=== PATIENT | female | born 1955 | race Caucasian/White ===

== ENCOUNTER 2022-03-14 10:49 | Emergency (ER) | payer OTHER ==
--- OUTSIDE RECORDS SUMMARY | 2022-03-14 10:54 | XMS REPORT | Continuity of Care Document ---
:1955 Author Organization [facility] t Address [address] [place] [place] [address] Care Team Providers Name Role Phone Aurora_Liban Attending Clinician Unavailable Zuniga_S Attending Clinician Unavailable Celestino Geiger DO Attending Clinician Zely_F Attending Clinician Unavailable V_Landis Attending Clinician Unavailable Sadiq Nugent MD Attending Clinician SADIQ NUGENT Attending Clinician Unavailable [facility] Attending Clinician Unavailable Hawkins_M Admitting Clinician Unavailable Zuniga_S Admitting Clinician Unavailable Zuniga_F Admitting Clinician Unavailable V_Landis Admitting Clinician Unavailable [facility] Admitting Clinician Unavailable Payers Payer Name Policy Type Policy Number Effective Date Expiration Date S el[place]: [id number] 2017 [employer] 00:00:00 [employer] [id number] INS[employer]ANCE COMPANY (MEDICARE SUPPLEMENT) [place]IC[place]: [id number] 2017 [employer] 00:00:00 - [facility] Problems Condition Condition Condition Status Onset Resolution Last Treating Co mments Source Name Details Category Date Date Treatment Clinician Date Bacterial Bacterial Problem Active [facility] vaginosis Vaginosis 2-04 da 00:00: Medical 00 Group Serum TSH Serum TSH Problem Active [facility] [place] level Level 2-04 da abnormal Abnormal 00:00: Medica l 00 Group Gynecologi Gynecologi Problem Active [facility] c c 2-04 da examinatio Examinatio 00:00: Me dical n n 00 Group Screening Screening Problem Active [place] for for 2-04 da malignant Malignant 00:00: Medi jr neoplasm Neoplasm 00 Group of breast of Breast Type 2 Type 2 Problem Active [place] diabetes Diabetes 1-14 da mellitus Mellitus 00:00: Medica l without without 00 Group complicati Complicati on on Mixed Mixed Problem Active [place] hyperlipid Hyperlipid 1-14 da emia emia 00:00: Medical 00 Group Essential Essential Problem Active [place] hypertensi Hypertensi 1-14 da on on 00:00: Medical 00 Group Chronic Chronic Problem Active [place] sinusitis Sinusitis 1-14 da 00:00: Medical 00 Group Diverticul Diverticul Problem Active M [facility] itis of itis of da colon Colon Medical Group Knee pain Knee Pain Problem Active [place] da Medical Group Allergies, Adverse Reactions, Alerts Allergy Allergy Status Severity Reaction(s) Onset Inactive Treating Comm ents Source Name Type Date Date Clinician Cortison Propensi Active Swelling 2014-05 Univ ers e ty to 1-30 ity of adverse 00:00: [place] reaction 00 Medical s Branch K-Flex Propensi Active Other - See 2014-05 Anti Uni vers ty to comments 06-07 phylactic ity o f adverse 00:00: [place] reaction 00 Medical s Branch CORTISON DRUG Active Swelling 2014-05 Univer s E INGREDI 30 ity of 00:00: [place] 00 Medical Branch K-FLEX DRUG Active Other-Cmnt 2014-05 Univer s 30 ity of 00:00: [place] 00 Medical Branch Cortison Allergy Active Edema [place] e to da substanc Medical e Group Keflex Allergy Active Moderate Anaphylaxis [place] to to severe da substanc Medical e Group Tetanus Allergy Active [place] Toxoid, to da Adsorbed substanc Medica l e Group Social History Social Habit Start Date Stop Date Quantity Comments Source Exposure to Not sure University of SARS-CoV-2 [place] [facility] (event) Branch Alcohol intake 2019-10-03 2019-10-03 Current University of 00:00:00 00:00:00 non-drinker of [facility] alcohol Branch (finding) Sex Ass[birth year] At [birth year] Universit y of 00:00:00 00:00:00 [facility] Branch Smoking Status Start Date Stop Date Source Never smoker [facility] Medical Branch Medications Ordered Filled Start Stop Current Ordering Indication Dosage Frequency Signature Comments Components Source Medication Medication Date Date Medication? Clinician (SIG) Name Name hydrochloro 2020-0 2020- No 12.5mg Take 12.5 Univers thiazide 5-27 05-27 mg by ity of (ESIDRIX) 21:32: 00:00 mouth [place] 12.5 mg 19 :00 daily. Medical capsule Branch hydrochloro 2020-0 2020- No 12.5mg Take 12.5 Univers thiazide 5-27 05-27 mg by ity of (ESIDRIX) 21:32: 00:00 mouth [place] 12.5 mg 19 :00 daily. Medical capsule Branch azilsartan 2020-0 Yes Indication U nivers (EDARBI) 40 5-27 s: takes ity of mg Tab 19:57: 20 mg [place] [address] unless bp Medical elevated Branch aspirin 2020-0 Yes 81mg po qd Univ ers (ASPIR-81 5-27 ity of ORAL) 19:57: [place] [address] Medical Branch ergocalcife 2019-0 Yes Take 1 Univ ers rol, 5-27 capsule ity of vitamin D2, 19:57: every day [place] (VITAMIN D 34 by oral Medica l ORAL) route. Branch METOPROLOL 2019-0 Yes Take 25 mg U nivers TARTRATE 5-27 base by ity of ORAL 19:57: mouth. [place] [address] Indication Medical s: patient Branch states takes half 12.5 mg azilsartan 2020-0 Yes Indication U nivers (EDARBI) 40 5-27 s: takes ity of mg Tab 19:57: 20 mg [place] [address] unless bp Medical elevated Branch aspirin 2020-0 Yes 81mg po qd Univ ers (ASPIR-81 5-27 ity of ORAL) 19:57: [place] [address] Medical Branch ergocalcife 2020-0 Yes Take 1 Univ ers rol, 5-27 capsule ity of vitamin D2, 19:57: every day [place] (VITAMIN D 34 by oral Medica l ORAL) route. Branch METOPROLOL 2020-0 Yes Take 25 mg U nivers TARTRATE 5-27 base by ity of ORAL 19:57: mouth. [place] [address] Indication Medical s: patient Branch states takes half 12.5 mg azilsartan 2020-0 Yes Indication U nivers (EDARBI) 40 5-27 s: takes ity of mg Tab 19:57: 20 mg [place] 34 unless bp Medical elevated Branch aspirin 2020-0 Yes 81mg po qd Univ ers (ASPIR-81 5-27 ity of ORAL) 19:57: [place] [address] Medical Branch ergocalcife 2020-0 Yes Take 1 Univ ers rol, 5-27 capsule ity of vitamin D2, 19:57: every day [place] (VITAMIN D 34 by oral Medica l ORAL) route. Branch METOPROLOL 2020-0 Yes Take 25 mg U nivers TARTRATE 5-27 base by ity of ORAL 19:57: mouth. [place] [address] Indication Medical s: patient Branch states takes half 12.5 mg azilsartan 2020-0 Yes Indication U nivers (EDARBI) 40 5-27 s: takes ity of mg Tab 19:57: 20 mg [place] [address] unless bp Medical elevated Branch aspirin 2020-0 Yes 81mg po qd Univ ers (ASPIR-81 5-27 ity of ORAL) 19:57: [place] [address] Medical Branch ergocalcife 2020-0 Yes Take 1 Univ ers rol, 5-27 capsule ity of vitamin D2, 19:57: every day [place] (VITAMIN D 34 by oral Medica l ORAL) route. Branch METOPROLOL 2019-0 Yes Take 25 mg U nivers TARTRATE 5-27 base by ity of ORAL 19:57: mouth. [place] [address] Indication Medical s: patient Branch states takes half 12.5 mg losartan 2020-0 2020- No 100mg Take 100 Uni vers (COZAAR) 5-27 05-27 mg by ity of 100 mg 19:53: 00:00 mouth [place] tablet 22 :00 daily. Medical Branch losartan 2020-0 2020- No 100mg Take 100 Uni vers (COZAAR) 5-27 05-27 mg by ity of 100 mg 19:53: 00:00 mouth [place] tablet 22 :00 daily. Medical Branch amoxicillin amoxicillin No amoxicilli [place] 875 mg 875 mg n 875 mg da tablet TAKE tablet TAKE tablet Medical ONE (1) ONE (1) TAKE ONE Group TABLET(S) TABLET(S) (1) BY MOUTH BY MOUTH TABLET(S) TWICE A DAY TWICE A DAY BY MOUTH UNTIL ALL UNTIL ALL TWICE A TAKEN FOR TAKEN FOR DAY UNTIL DENTAL DENTAL ALL TAKEN INFECTION. INFECTION. FOR DENTAL INFECTION. aspirin aspirin No aspirin [place] 81mg po qd 81mg po qd 81mg po qd da Medical Group Co Q-10 Co Q-10 No Co Q-10 [place] [facility] 200mg daily 200mg daily 200mg da daily Medical Group cyclobenzap cyclobenzap No 1 Q1D cyclobenza [place] rine 10 mg rine 10 mg alicia 10 da tablet Take tablet Take mg tablet Medical 1 tablet 1 tablet Take 1 Group every day every day tablet by oral by oral every day route at route at by oral bedtime for bedtime for route at 30 days. 30 days. bedtime for 30 days. cyclobenzap cyclobenzap No cyclobenza [place] rine 5 mg rine 5 mg alicia 5 mg da tablet TAKE tablet TAKE tablet Medical 1 TABLET 3 1 TABLET 3 TAKE 1 G roup TIMES A DAY TIMES A DAY TABLET 3 BY ORAL BY ORAL TIMES A ROUTE. ROUTE. DAY BY ORAL ROUTE. Edarbi 80 Edarbi 80 No Edarbi 80 [place] mg tablet mg tablet mg tablet da TAKE ONE TAKE ONE TAKE ONE Med ical (1) (1) (1) Group TABLET(S) TABLET(S) TABLET(S) BY MOUTH BY MOUTH BY MOUTH ONCE A DAY. ONCE A DAY. ONCE A DAY. epinephrine epinephrine No epinephrin [place] 0.3 mg/0.3 0.3 mg/0.3 e 0.3 da mL mL mg/0.3 mL Medical injection, injection, injection, Group auto-inject auto-inject auto-injec or USE or USE tor USE DIRECTED DIRECTED DIRECTED Fish Oil Fish Oil No Fish Oil [place] one daily one daily one daily da Medical Group metformin metformin No metformin [place] 500 mg 500 mg 500 mg da tablet TAKE tablet TAKE tablet Medical ONE (1) ONE (1) TAKE ONE Group TABLET(S) TABLET(S) (1) BY MOUTH BY MOUTH TABLET(S) TWICE A TWICE A BY MOUTH DAY. DAY. TWICE A DAY. metoprolol metoprolol No metoprolol [place] tartrate 25 tartrate 25 tartrate da mg tablet mg tablet 25 mg Medi jr TAKE 1 TAKE 1 tablet Group TABLET TABLET TAKE 1 TWICE A DAY TWICE A DAY TABLET BY ORAL BY ORAL TWICE A ROUTE. ROUTE. DAY BY ORAL ROUTE. metronidazo metronidazo No 1applic Q1D metronidaz [place] le 0.75 % le 0.75 % ator(s) ole 0.75 % da (37.5 mg/5 (37.5 mg/5 ful (37.5 mg/5 Medical gram) gram) gram) Group vaginal gel vaginal gel vaginal Insert 1 Insert 1 gel Insert applicatorf applicatorf 1 ul every ul every applicator day by day by ful every vaginal vaginal day by route for 7 route for 7 vaginal days. days. route for 7 days. montelukast montelukast No montelukas [place] 10 mg 10 mg t 10 mg da tablet TAKE tablet TAKE tablet Medical ONE (1) ONE (1) TAKE ONE Group TABLET(S) TABLET(S) (1) BY MOUTH BY MOUTH TABLET(S) EVERY DAY. EVERY DAY. BY MOUTH EVERY DAY. nitroglycer nitroglycer No nitroglyce [place] in 0.4 mg in 0.4 mg rin 0.4 mg da sublingual sublingual sublingual Medical tablet tablet tablet Group DISSOLVE DISSOLVE DISSOLVE ONE TABLET ONE TABLET ONE TABLET UNDER UNDER UNDER TONGUE TONGUE TONGUE EVERY 5 EVERY 5 EVERY 5 MINUTES UP MINUTES UP MINUTES UP TO 3 DOSES TO 3 DOSES TO 3 DOSES IN 15 IN 15 IN 15 MINUTES MINUTES MINUTES NEEDED FOR NEEDED FOR NEEDED FOR CHEST PAIN. CHEST PAIN. CHEST IF USING 3 IF USING 3 PAIN. IF DOSES SEEK DOSES SEEK USING 3 MEDICAL MEDICAL DOSES SEEK TREATM TREATM MEDICAL TREATM Vitamin D Vitamin D No 1capsul Q1D Vitamin D [place] 2,000 unit 2,000 unit e(s) 2,000 unit da capsule capsule capsule Medica l Take 1 Take 1 Take 1 Group capsule capsule capsule every day every day every day by oral by oral by oral route. route. route. Immunizations Ordered Immunization Filled Immunization Date Status Commen ts Source Name Name influenza, high dose influenza, high 2018-04-18 Completed Phil seasonal dose seasonal 12:08:35 Medical Charu up Vital Signs Vital Name Observation Time Observation Value Comments Source Height 2022-01-06 00:00:00 67 [in_i] [facility] BMI (Body Mass 2022-01-06 00:00:00 25.4 kg/m2 [facility] Medical Index) Group Body Weight 2022-01-06 00:00:00 2592 [oz_av] [facility] Height 2021-05-06 00:00:00 67 [in_i] [facility] BMI (Body Mass 2021-05-06 00:00:00 25.4 kg/m2 [facility] head correction officer Medical Index) Group Body Weight 2021-05-06 00:00:00 2592 [oz_av] [facility] BP Diastolic 2020-10-11 00:00:00 90 mm[Hg] [facility] Height 2020-10-11 00:00:00 67 [in_i] [facility] BMI (Body Mass 2020-10-11 00:00:00 25[facility]4 [facility] BP Systolic 2020-10-11 00:00:00 168 mm[Hg] [facility] Body Weight 2020-10-11 00:00:00 2592 [oz_av] [facility] Height 2020-06-06 00:00:00 67 [in_i] [facility] BMI (Body Mass 2020-06-06 00:00:00 25.8 [facility] Body Weight 2020-06-06 00:00:00 2640 [oz_av] [facility] BP Diastolic 2020-05-30 00:00:00 77 mm[Hg] [facility] Height 2020-05-30 00:00:00 67 [in_i] [facility] BMI (Body Mass 2020-05-30 00:00:00 25.8 kg/m2 [facility] head correction officer Medical Index) Group BP Systolic 2020-05-30 00:00:00 107 mm[Hg] [facility] Body Weight 2020-05-30 00:00:00 2640 [oz_av] [facility] Height 2020-05-24 00:00:00 67 [in_i] [facility] BMI (Body Mass 2020-05-24 00:00:00 25.8 kg/m2 [facility] head correction officer Medical Index) Group Body Weight 2020-05-24 00:00:00 2640 [oz_av] [facility] Height 2020-04-24 00:00:00 67 [in_i] [facility] BMI (Body Mass 2020-04-24 00:00:00 25.8 kg/m2 [facility] head correction officer Medical Index) Group Body Weight 2020-04-24 00:00:00 2640 [oz_av] [facility] Height 2020-04-14 00:00:00 67 [in_i] [facility] BMI (Body Mass 2020-04-14 00:00:00 26.2 kg/m2 [facility] head correction officer Medical Index) Group Body Weight 2020-04-14 00:00:00 2672 [oz_av] [facility] Systolic blood 2019-10-03 19:50:00 139 mm[Hg] Univer sity of pressure [facility] Diastolic blood 2019-10-03 19:50:00 76 mm[Hg] Unive rsity of pressure [facility] Heart rate 2019-10-03 19:50:00 78 /min Universi ty of [facility] Respiratory rate 2019-10-03 19:50:00 16 /min Univ ersity of [facility] Body height 2019-10-03 19:50:00 171.5 cm Universi ty of [facility] Body weight 2019-10-03 19:50:00 77.384 kg Universi ty of [facility] BMI 2019-10-03 19:50:00 26.33 kg/m2 Universi ty of [facility] Systolic blood 2019-10-03 19:50:00 139 mm[Hg] Univer sity of pressure [facility] Diastolic blood 2019-10-03 19:50:00 76 mm[Hg] Unive rsity of pressure [facility] Heart rate 2019-10-03 19:50:00 78 /min Universi ty of [facility] Respiratory rate 2019-10-03 19:50:00 16 /min Univ ersity of [facility] Body height 2019-10-03 19:50:00 171.5 cm Universi ty of [facility] Body weight 2019-10-03 19:50:00 77.384 kg [facility] BMI 2019-10-03 19:50:00 26.33 kg/m2 [facility] BP Diastolic 2019-06-12 00:00:00 79 mm[Hg] [facility] Height 2019-06-12 00:00:00 67 [in_i] [facility] BMI (Body Mass 2019-06-12 00:00:00 26 kg/m2 [facility] head correction officer Medical Index) Group BP Systolic 2019-06-12 00:00:00 133 mm[Hg] [facility] Body Weight 2019-06-12 00:00:00 166 [lb_av] [facility] BP Diastolic 2019-05-31 00:00:00 79 mm[Hg] [facility] Height 2019-05-31 00:00:00 67 [in_i] [facility] BMI (Body Mass 2019-05-31 00:00:00 26 kg/m2 [facility] head correction officer Medical Index) Group BP Systolic 2019-05-31 00:00:00 120 mm[Hg] [facility] Body Weight 2019-05-31 00:00:00 2656 [oz_av] [facility] BP Diastolic 2019-05-23 00:00:00 93 mm[Hg] [facility] Height 2019-05-23 00:00:00 67 [in_i] [facility] BMI (Body Mass 2019-05-23 00:00:00 25.9 kg/m2 [facility] head correction officer Medical Index) Group BP Systolic 2019-05-23 00:00:00 138 mm[Hg] [facility] Body Weight 2019-05-23 00:00:00 2641 [oz_av] [facility] BP Diastolic 2019-04-27 00:00:00 87 mm[Hg] [facility] Height 2019-04-27 00:00:00 67 [in_i] [facility] BMI (Body Mass 2019-04-27 00:00:00 26.2 kg/m2 [facility] head correction officer Medical Index) Group BP Systolic 2019-04-27 00:00:00 130 mm[Hg] [facility] Body Weight 2019-04-27 00:00:00 2681 [oz_av] [facility] BP Diastolic 2018-06-29 00:00:00 86 mm[Hg] [facility] Height 2018-06-29 00:00:00 67 [in_i] [facility] BMI (Body Mass 2018-06-29 00:00:00 27.6 kg/m2 [facility] Medical Index) Group BP Systolic 2018-06-29 00:00:00 129 mm[Hg] [facility] Body Weight 2018-06-29 00:00:00 2822 [oz_av] [facility] BP Diastolic 2018-06-19 00:00:00 88 mm[Hg] [facility] Height 2018-06-19 00:00:00 67 [in_i] [facility] BMI (Body Mass 2018-06-19 00:00:00 27.7 kg/m2 [facility] Medical Index) Group BP Systolic 2018-06-19 00:00:00 148 [facility]Hg[facility] Body [facility] 2018-06-19 00:00:00 2832 [facility] Procedures Procedure Date / Time Performing Clinician Source Performed XR, lumbar spine 2020-10-11 00:00:00 [facility] XR, cervical spine 2020-10-11 00:00:00 [facility], sacrum + coccyx [facility], [facility]/o [facility] 2020-10-11 00:00:00 [facility] XR, chest, 2 view 2020-05-26 00:00:00 [facility] unlisted imaging order 2019-06-12 00:00:00 [facility] unlisted imaging order 2019-05-23 00:00:00 [facility] ord Medical Group CT, face, w/o contrast 2018-06-19 00:00:00 [facility] Colonoscopy 2017-10-20 00:00:00 Phil Nm dical Group Arthroscopy of Knee with 2015-05-09 [facility] Endoscopic Balloon 2009-05-09 00:00:00 [facility] Dilatation of Ostium of Group Paranasal Sinus Hysterectomy [facility] Plan of Care Planned Activity Planned Date Details Comments Source Instructions [facility] Medic al Group Encounters Start End Encounter Admission Attending Care Care Encounter Source Date/Time Date/Time Type Type Clinicians Facility Department ID 2022-01-06 2022-01-06 [place] - [id number] [place] 00:00:00 00:00:00 Lenore Mora 0831 marly [facility] Medical JOCKEY VALET: [address] [place] [phone] , Ph. 2021-05-06 2021-05-06 [place] Tor[place] - [id number] 21 [place] 00:00:00 00:00:00 Ld Mora 1229 Israel Russ Medical MD: [address] [place] [phone] , Ph. 2020-10-13 2020-10-13 Outpatient Zuniga_S [facility] 2020 [place] 11:39:00 11:39:00 0607 [facility] 2020-10-11 2020-10-11 Katty GisellM MM [place] - [id number] [place] 00:00:00 00:00:00 [facility] [place] 0605 da ROUTE RETURNER-C: [facility] Medical [address] [address] , Ph. 2020-07-14 2020-07-14 Patient Juanjo [facility] [id number] Univers 00:00:00 00:00:00 Outreach Celestino [facility] [id number] i ty [facility] [id number] Kim VILLATORO [phone] Nm dical 388 Branch 2020-07-03 2020-07-03 [place] [id number] [place] 10:02:00 10:02:00 0225 Medical Group 2020-06-06 2020-06-06 [place]ia Simon_[place] - [id number] 21 [place] 00:00:00 00:00:00 Lenore Mora 0129 [facility] JOCKEY VALET: [address] [facility] [address], [place] [address] , Ph. 2020-05-31 2020-05-31 Outpatient Aurora_M MMG MM[place] [id number] [place] 02:51:00 02:51:00 0123 Medical Group 2020-05-30 2020-05-30 [place] Simon_[place] - [id number] [place] 00:00:00 00:00:00 Lenore Mora 0122 [facility] JOCKEY VALET: [address] [facility] [address], [place] [address] , Ph. 2020-05-28 2020-05-28 Outpatient Zuniga_F MMG MMG [id number] [place] 03:16:00 03:16:00 0120 Medical Group 2020-05-25 2020-05-25 Outpatient Zuniga_F MMG MMG [id number] [place] 12:12:00 12:12:00 0117 Medical Group 2020-05-24 2020-05-24 [place] Z[place]iga_[place] - [id number] 1 [place] 00:00:00 00:00:00 Lenore Mora 0116 [facility] JOCKEY VALET: [address] [facility] [address], [place] [address] , Ph. 2020-04-25 2020-04-25 Outpatient Zuniga_F MMG MMG [id number] [place] 03:04:00 03:04:00 1218 Medical Group 2020-04-24 2020-04-24 Pollo Zuniga_[place] - [id number] 20 [place] 00:00:00 00:00:00 Ld Mora 1217 Israel Russ MD: [address] [facility] [address], [place] [address] , Ph. 2020-04-14 2020-04-14 Pollo V_[place] - [id number] 20 [place] 00:00:00 00:00:00 Ld Mora 1207 Israel Russ MD: [address] [facility] [address], [place] [address] , Ph. 2020-03-26 2020-03-26 Outpatient V_Landis MMG MMG [id number] [place] 02:41:00 02:41:00 1118 [facility] 2020-03-19 2020-03-19 Outpatient V_Landis MMG MMG [id number] [place] 04:44:00 04:44:00 1111 [facility] 2019-10-15 2019-10-15 Telephone Nugent, [facility] [id number] [facility] 00:00:00 00:00:00 Sadiq Froid [id number] i ty [id number] [id number] [address] 2019-10-15 2019-10-15 Telephone Nugent, [facility] [id number] 00:00:00 00:00:00 Allenong Froid [id number] [place] [id number] Professio [id number] [address] 2019-10-03 2019-10-03 Office Nugent, [facility] [id number] [facility] 14:32:42 15:27:43 Visit Sadiq Froid [id number] i ty [place] [id number] [id number] Nm dic[address] 2019-10-03 2019-10-03 Office Nugent, [facility] [id number] 14:32:42 15:27:43 Visit Sadiq Froid [id number] [place] [id number] [facility] [phone] [facility] 220 [facility] 2019-10-03 2019-10-03 Outpatient Nader NUGENT [facility] [id number] Univers 14:30:00 14:30:00 SADIQ marlene [facility] 2019-07-15 2019-07-15 Outpatient V_Landis MMG MMG 2019 [place] 09:04:00 09:04:00 0308 da Medical Group 2019-06-14 2019-06-14 Outpatient V_Landis MMG MMG 2019 [place] 11:33:00 11:33:00 0206 da Medical Group 2019-06-12 2019-06-12 Mariana Everett V_Landis MMG 2019 [place] 00:00:00 00:00:00 Discovery [place]gil 0204 da MAN [facility]: [address] [place], [place] [address] , Ph. [phone] 2019-06-04 2019-06-04 Outpatient [facility]G MMG [place] 06:07:00 06:07:00 0127 da Medical Group 2019-05-31 2019-05-31 [place] [facility] [place] - [id number] [place] 00:00:00 00:00:00 Ld Mora 0123 Israel Russ MD: [address] [place] [address], [place] [address] , Ph. 2019-05-30 2019-05-30 Outpatient [facility] MMG MMG [place] 04:00:00 04:00:00 0122 da Medical Group 2019-05-23 2019-05-23 [place] [facility] [place] - [id number] [place] 00:00:00 00:00:00 Ld Mora 0115 Israel Russ MD: [address] [place] [address], [place] [address] , Ph. 2019-05-14 2019-05-14 Outpatient [facility] [id number] [place] 05:35:00 05:35:00 0106 da Medical Group 2019-04-27 2019-04-27 [place] [facility] [place] - [id number] [place] 00:00:00 00:00:00 Lenore Mora 1220 [facility] Medical JOCKEY VALET: [address] [facility] [address], [place] [address] , Ph. 2018-06-29 2018-06-29 [place] [facility] [place] - [id number] 9 [place] 00:00:00 00:00:00 Ld Mora 0221 marly [facility] Medical MD: [address] [place] [address] 201, [place] [address] , Ph. 2018-06-19 2018-06-19 [place] [facility] [place] - [id number] 9 [place] 00:00:00 00:00:00 Ld Cool1 marly [facility] Medical MD: [address] [facility] [address], [place] [address] , Ph. Results Test Description Test Time Test Comments Results Result Comments Source SARS-CoV+SARS-CoV-2 (COVID-19) Ag [Presence] in Respiratory 2020-05-24 11:08:28 specimen by Rapid immunoassay Test Item Value Reference Range Interpretation Comme nts SARS-CoV - 2 (test code = SARS-CoV - 2) [facility] Ag [Presence] in Respiratory specimen by Rapid [id number] 11:08:28 Test Item Value Reference Range Interpretation Comments SARS-CoV - 2 (test code = SARS-CoV - positive 2) [facility] Ag [Presence] in Respiratory specimen by Rapid [id number] 11:08:28 Test Item Value Reference Range Interpretation Comments SARS-CoV - 2 (test code = SARS-CoV - positive 2) [facility]-19) Ag [Presence] in Respiratory specimen by Rapid [id number] 11:08:28 Test Item Value Reference Range Interpretation Comments SARS-CoV - 2 (test code = SARS-CoV - positive 2) [place] [facility] Auto Differential panel - [id number] 07:17:00 Test Item Value Reference Range Interpretation Comments white blood count (test code = 5.8 K/uL 4.0-11.5 white blood count) red blood count (test code = red 4.63 M/uL 3.80-5.20 blood count) hemoglobin (test code = 13.2 g/dL 10.5-15.7 hemoglobin) hematocrit (test code = 41.5 % 34.0-50.0 hematocrit) MCV [Entitic volume] (test code = 89.6 fL 86-100 55444-1) mean corpuscular hemoglobin (test 28.5 pg 26.2-33.4 code = mean corpuscular hemoglobin) mean corpuscular HGB conc (test 31.8 g/dL 30-34 code = mean corpuscular HGB conc) red cell distribution width (test 12.3 % 12.0-15.5 code = red cell distribution width) platelet count (test code = 223 K/uL 165-450 platelet count) mean platelet volume (test code = 11.6 fL 9.4-12.6 mean platelet volume) Segmented neutrophils/100 57.3 % 44.4-80.1 leukocytes in Blood (test code = 19682-6) Immature granulocytes [#/volume] 0.0 K/uL 0.0-0.03 H in Blood (test code = 83682-6) lymphocyte% (test code = 28.0 % 10.0-50.0 lymphocyte%) mono % (test code = mono %) 8.2 % 3.6-12.0 eos % (test code = eos %) 4.8 % 0.0-5.4 Basophils/100 leukocytes in 1.2 % 0.1-1.2 Unspecified specimen (test code = 62229-4) Band form neutrophils [#/volume] 3.33 K/uL 1.56-6.13 in Blood (test code = 88808-3) Lymphocytes [#/volume] in 1.6 K/uL 1.18-3.74 Unspecified specimen by Automated count (test code = 94468-9) mono # (test code = mono #) 0.48 K/uL 0.24-0.86 eos # (test code = eos #) 0.28 K/uL 0.04-0.36 basophil # (test code = basophil 0.07 K/uL 0.01-0.08 #) NRBC% (test code = NRBC%) 0 /100 WBC 0-0.2 NRBC# (test code = NRBC#) 0 K/uL [facility], method unspecified - [id number] 07:17:00NeutrophilsLymphocyteMonocyteNucleated Red Blood CellPlatelet EstimatePlatelet MorphologyMaTyler Holmes [facility]Bab[facility] 2000 panel - Serum or [id number] 07:17:00 Test Item Value Reference Range Interpretation Comments Glucose [Mass/volume] in Serum or 137 mg/dL 82-115 H Plasma (test code = 2345-7) Urea nitrogen [Mass/volume] in 18 mg/dL 8-23 Serum or Plasma (test code = 3094-0) osmolality calculated,serum (test 282 mOsm/kg 280-300 code = osmolality calculated,serum) creatinine (test code = 0.9 mg/dL 0.50-0.90 creatinine) glomerular filtration rate (test >60.00 code = glomerular filtration rate) Urea nitrogen/Creatinine [Mass 20.0 12-20 Ratio] in Serum or Plasma (test code = 3097-3) sodium level (test code = sodium 139 mmol/L 135-145 level) potassium level (test code = 4.8 mmol/L 3.5-5.2 potassium level) chloride level (test code = 104 mmol/L 98-108 chloride level) CO2 (test code = CO2) 25 mmol/L 21-32 anion gap (test code = anion gap) 14.8 mEq/L 12-20 calcium level (test code = 9.6 mg/dL 8.8-10.2 calcium level) [facility] panel - Serum or [id number] 07:17:00 Test Item Value Reference Range Interpretation Comments cholesterol level (test code = 189 mg/dL 150-200 cholesterol level) triglycerides level (test code = 87 mg/dL <150 triglycerides level) HDL cholesterol (test code = HDL 47 mg/dL >65 L cholesterol) LDL cholesterol direct (test code = 126 mg/dL <100 H LDL cholesterol direct) cholesterol risk ratio (test code = 4.021 cholesterol risk ratio) [facility] HealthUrinalysis complete panel - [id number] 10:11:00 Test Item Value Reference Range Interpretation Comments Color of Urine by Auto (test code lt. yellow = 58104-3) Appearance of Urine (test code = clear clear 5767-9) Glucose [Mass/volume] in Urine negative negative (test code = 2350-7) bilirubin, urine (test code = negative negative bilirubin, urine) ketone, urine (test code = negative negative ketone, urine) Specific gravity of Urine by <=1.005 1.003-1.030 Automated test strip (test code = 73830-3) Hemoglobin [Presence] in Urine by negative H Test strip (test code = 5794-3) pH of Urine (test code = 2756-5) 7.000 5-9 protein urine (UA) (test code = negative negative protein urine (UA)) Urobilinogen [Presence] in Urine 0.2 E.U./dL 0.2-1.0 (test code = 46882-3) Nitrite [Presence] in Urine by negative negative Test strip (test code = 5802-4) urine leukocyte esterase (test trace negative H code = urine leukocyte esterase) Erythrocytes [Presence] in Urine =0-3 0-5 (test code = 20908-5) WBC, urine (test code = WBC, =0-5 0-5 urine) Epithelial cells [Presence] in =0-5 0-5 Urine sediment by Light microscopy (test code = 12762-1) bacteria, urine (test code = trace none detect bacteria, urine) urine culture added? (test code = yes urine culture added?) [facility] HealthBacteria identified in Urine by [id number] 10:11:00 Test Item Value Reference Range Interpretation Comments Bacteria identified in scant skin piter Urine by Culture (test present. pathogen not code = 630-4) present at 2 days. [facility] panel - Serum or [id number] 08:23:00 Test Item Value Reference Range Interpretation Comments cholesterol level (test code = 207 mg/dL 150-200 H cholesterol level) triglycerides level (test code = 92 mg/dL <150 triglycerides level) HDL cholesterol (test code = HDL 62 mg/dL >65 L cholesterol) LDL cholesterol direct (test code = 133 mg/dL <100 H LDL cholesterol direct) cholesterol risk ratio (test code = 3.338 cholesterol risk ratio) [facility] HealthThyrotropin [Units/volume] in Serum or [id number] 08:23:00 Test Item Value Reference Range Interpretation Comments Thyrotropin [Units/volume] in 4.13 uIU/mL 0.36-3.74 H Serum or Plasma (test code = 3016-3) [facility] 1995 panel - Serum or [id number] 08:23:00 Test Item Value Reference Range Interpretation Comments cholesterol level (test code = 207 mg/dL 150-200 H cholesterol level) triglycerides level (test code = 92 mg/dL <150 triglycerides level) HDL cholesterol (test code = HDL 62 mg/dL >65 L cholesterol) LDL cholesterol direct (test code = 133 mg/dL <100 H LDL cholesterol direct) cholesterol risk ratio (test code = 3.338 cholesterol risk ratio) [facility] HealthThyrotropin [Units/volume] in Serum or [id number] 08:23:00 Test Item Value Reference Range Interpretation Comments Thyrotropin [Units/volume] in 4.13 uIU/mL 0.36-3.74 H Serum or Plasma (test code = 3016-3) [facility] 1995 panel - Serum or [id number] 08:23:00 Test Item Value Reference Range Interpretation Comments cholesterol level (test code = 207 mg/dL 150-200 H cholesterol level) triglycerides level (test code = 92 mg/dL <150 triglycerides level) HDL cholesterol (test code = HDL 62 mg/dL >65 L cholesterol) LDL cholesterol direct (test code = 133 mg/dL <100 H LDL cholesterol direct) cholesterol risk ratio (test code = 3.338 cholesterol risk ratio) [facility] HealthThyrotropin [Units/volume] in Serum or [id number] 08:23:00 Test Item Value Reference Range Interpretation Comments Thyrotropin [Units/volume] in 4.13 uIU/mL 0.36-3.74 H Serum or Plasma (test code = 3016-3) [facility] HealthUrinalysis complete panel - [id number] 04:49:00 Test Item Value Reference Range Interpretation Comments Color of Urine by Auto (test lt. yellow code = 59282-5) Appearance of Urine (test code clear clear = 5767-9) Glucose [Mass/volume] in Urine negative negative (test code = 2350-7) bilirubin, urine (test code = negative negative bilirubin, urine) ketone, urine (test code = negative negative ketone, urine) Specific gravity of Urine by <=1.005 1.003-1.030 Automated test strip (test code = 70225-8) Hemoglobin [Presence] in Urine negative H by Test strip (test code = 5794-3) pH of Urine (test code = 6.000 5-9 2756-5) protein urine (UA) (test code = negative negative protein urine (UA)) Urobilinogen [Presence] in 0.2 E.U./dL 0.2-1.0 Urine (test code = 74525-4) Nitrite [Presence] in Urine by negative negative Test strip (test code = 5802-4) urine leukocyte esterase (test trace negative H code = urine leukocyte esterase) Erythrocytes [Presence] in =0-3 0-5 Urine (test code = 15594-3) WBC, urine (test code = WBC, =0-5 0-5 urine) Epithelial cells [Presence] in =0-5 0-5 Urine sediment by Light microscopy (test code = 99475-2) bacteria, urine (test code = none detected none detect bacteria, urine) urine culture added? (test code yes = urine culture added?) [facility] HealthBacteria identified in Urine by [id number] 04:49:00Bacteria Ur CultOchsner Rush HealthUrinalysis complete panel - Urine 2019-05-20 04:49:00 Test Item Value Reference Range Interpretation Comments Color of Urine by Auto (test lt. yellow code = 93590-0) Appearance of Urine (test code clear clear = 5767-9) Glucose [Mass/volume] in Urine negative negative (test code = 2350-7) bilirubin, urine (test code = negative negative bilirubin, urine) ketone, urine (test code = negative negative ketone, urine) Specific gravity of Urine by <=1.005 1.003-1.030 Automated test strip (test code = 02500-8) Hemoglobin [Presence] in Urine negative H by Test strip (test code = 5794-3) pH of Urine (test code = 6.000 5-9 2756-5) protein urine (UA) (test code = negative negative protein urine (UA)) Urobilinogen [Presence] in 0.2 E.U./dL 0.2-1.0 Urine (test code = 99841-4) Nitrite [Presence] in Urine by negative negative Test strip (test code = 5802-4) urine leukocyte esterase (test trace negative H code = urine leukocyte esterase) Erythrocytes [Presence] in =0-3 0-5 Urine (test code = 50431-4) WBC, urine (test code = WBC, =0-5 0-5 urine) Epithelial cells [Presence] in =0-5 0-5 Urine sediment by Light microscopy (test code = 82620-2) bacteria, urine (test code = none detected none detect bacteria, urine) urine culture added? (test code yes = urine culture added?) [facility] HealthBacteria identified in Urine by [id number] 04:49:00[facility] Ur [facility] 2019-05-20 04:49:00 Test Item Value Reference Range Interpretation Comments Color of Urine by Auto (test lt. yellow code = 27953-6) Appearance of Urine (test code clear clear = 5767-9) Glucose [Mass/volume] in Urine negative negative (test code = 2350-7) bilirubin, urine (test code = negative negative bilirubin, urine) ketone, urine (test code = negative negative ketone, urine) Specific gravity of Urine by <=1.005 1.003-1.030 Automated test strip (test code = 34088-9) Hemoglobin [Presence] in Urine negative H by Test strip (test code = 5794-3) pH of Urine (test code = 6.000 5-9 2756-5) protein urine (UA) (test code = negative negative protein urine (UA)) Urobilinogen [Presence] in 0.2 E.U./dL 0.2-1.0 Urine (test code = 04515-0) Nitrite [Presence] in Urine by negative negative Test strip (test code = 5802-4) urine leukocyte esterase (test trace negative H code = urine leukocyte esterase) Erythrocytes [Presence] in =0-3 0-5 Urine (test code = 44093-5) WBC, urine (test code = WBC, =0-5 0-5 urine) Epithelial cells [Presence] in =0-5 0-5 Urine sediment by Light microscopy (test code = 77155-9) bacteria, urine (test code = none detected none detect bacteria, urine) urine culture added? (test code yes = urine culture added?) [facility] HealthBacteria identified in Urine by [id number] 04:49:00Bacteria Ur [facility] W Auto Differential panel - [id number] 04:40:00 Test Item Value Reference Range Interpretation Comments white blood count (test code = 9.4 K/uL 4.0-11.5 white blood count) red blood count (test code = red 4.52 M/uL 3.80-5.20 blood count) hemoglobin (test code = 13.0 g/dL 10.5-15.7 hemoglobin) hematocrit (test code = 39.7 % 34.0-50.0 hematocrit) Erythrocyte mean corpuscular 87.8 fL 86-100 volume [Entitic volume] (test code = 28629-7) mean corpuscular hemoglobin (test 28.8 pg 26.2-33.4 code = mean corpuscular hemoglobin) mean corpuscular HGB conc (test 32.7 g/dL 30-34 code = mean corpuscular HGB conc) red cell distribution width (test 12.7 % 12.0-15.5 code = red cell distribution width) platelet count (test code = 167 K/uL 165-450 platelet count) mean platelet volume (test code = 9.9 fL 9.4-12.6 mean platelet volume) Neutrophils.segmented/100 67.0 % 44.4-80.1 leukocytes in Blood (test code = 98573-0) Granulocytes Immature [#/volume] 0.0 K/uL 0.0-0.03 in Blood (test code = 21104-8) lymphocyte% (test code = 20.5 % 10.0-50.0 lymphocyte%) mono % (test code = mono %) 10.1 % 3.6-12.0 eos % (test code = eos %) 1.8 % 0.0-5.4 Basophils/100 leukocytes in 0.4 % 0.1-1.2 Unspecified specimen (test code = 11684-0) Neutrophils.band form [#/volume] 6.27 K/uL 1.56-6.13 H in Blood (test code = 66282-2) Lymphocytes [#/volume] in 1.9 K/uL 1.18-3.74 Unspecified specimen by Automated count (test code = 41177-9) mono # (test code = mono #) 0.95 K/uL 0.24-0.86 H eos # (test code = eos #) 0.17 K/uL 0.04-0.36 basophil # (test code = basophil 0.04 K/uL 0.01-0.08 #) NRBC% (test code = NRBC%) 0 /100 WBC 0-0.2 NRBC# (test code = NRBC#) 0 K/uL [facility]ldiffcomm-[id number] 04:40:00Differential comment-P [facility]Com[facility] 2000 panel - Serum or Plasma 2019-05-20 04:40:00 Test Item Value Reference Range Interpretation Comments glucose (test code = glucose) 153 mg/dL 82-115 H Urea nitrogen [Mass/volume] in 16 mg/dL 8-23 Serum or Plasma (test code = 3094-0) osmolality calculated,serum (test 274 mOsm/kg 280-300 L code = osmolality calculated,serum) creatinine (test code = 0.9 mg/dL 0.50-0.90 creatinine) glomerular filtration rate (test >60.00 code = glomerular filtration rate) Urea nitrogen/Creatinine [Mass 17.8 12-20 Ratio] in Serum or Plasma (test code = 3097-3) sodium level (test code = sodium 135 mmol/L 135-145 level) Potassium [Moles/volume] in Body 4.0 mmol/L 3.5-5.2 fluid (test code = 2821-7) chloride level (test code = 96 mmol/L 98-108 L chloride level) CO2 (test code = CO2) 26 mmol/L 21-32 anion gap (test code = anion gap) 17.0 mEq/L 12-20 calcium level (test code = 9.8 mg/dL 8.8-10.2 calcium level) total protein (test code = total 7.6 g/dL 6.6-8.7 protein) albumin (test code = albumin) 4.3 g/dL 3.5-5.2 globulin (test code = globulin) 3.3 gm/dL A/G ratio (test code = A/G ratio) 1.3 >1.0 bilirubin,total (test code = 0.5 mg/dL 0.0-1.2 bilirubin,total) AST/SGOT (test code = AST/SGOT) 26 U/L 15-32 Alanine aminotransferase 33 U/L 0-33 [Enzymatic activity/volume] in Serum or Plasma (test code = 1742-6) Alkaline phosphatase [Enzymatic 73 U/L 35-105 activity/volume] in Serum or Plasma (test code = 6768-6) [facility] GroupMagn[facility] [Moles/volume] in Unspecified specimen 2019-05-20 04:40:00 Test Item Value Reference Range Interpretation Comments magnesium level (test code = 2.0 mg/dL 1.6-2.4 magnesium level) [facility] GroupAmylase [Enzymatic activity/volume] in Serum or Plasma 2019-05-20 04:40:00 Test Item Value Reference Range Interpretation Comments Amylase [Enzymatic activity/volume] in 53 U/L 28-100 Serum or Plasma (test code = 1798-8) [facility] [Enzymatic activity/volume] in Serum or Plasma 2019-05-20 04:40:00 Test Item Value Reference Range Interpretation Comments lipase (test code = lipase) 55 U/L 13-60 [facility] GroupLactate [Mass/volume] in Serum or [id number] 04:40:00 Test Item Value Reference Range Interpretation Comments lactic acid (test code = lactic 1.47 mmol/L 0.5-2.2 acid) [facility] HealthHemoglobin A1c [Mass/volume] in [id number] 04:40:00 Test Item Value Reference Range Interpretation Comments Hemoglobin A1c [Mass/volume] in Blood 6.0 % 4.0-6.0 (test code = 85658-6) [facility] W Auto Differential panel - [id number] 04:40:00 Test Item Value Reference Range Interpretation Comments white blood count (test code = 9.4 K/uL 4.0-11.5 white blood count) red blood count (test code = red 4.52 M/uL 3.80-5.20 blood count) hemoglobin (test code = 13.0 g/dL 10.5-15.7 hemoglobin) hematocrit (test code = 39.7 % 34.0-50.0 hematocrit) Erythrocyte mean corpuscular 87.8 fL 86-100 volume [Entitic volume] (test code = 13652-4) mean corpuscular hemoglobin (test 28.8 pg 26.2-33.4 code = mean corpuscular hemoglobin) mean corpuscular HGB conc (test 32.7 g/dL 30-34 code = mean corpuscular HGB conc) red cell distribution width (test 12.7 % 12.0-15.5 code = red cell distribution width) platelet count (test code = 167 K/uL 165-450 platelet count) mean platelet volume (test code = 9.9 fL 9.4-12.6 mean platelet volume) Neutrophils.segmented/100 67.0 % 44.4-80.1 leukocytes in Blood (test code = 34126-2) Granulocytes Immature [#/volume] 0.0 K/uL 0.0-0.03 in Blood (test code = 18887-0) lymphocyte% (test code = 20.5 % 10.0-50.0 lymphocyte%) mono % (test code = mono %) 10.1 % 3.6-12.0 eos % (test code = eos %) 1.8 % 0.0-5.4 Basophils/100 leukocytes in 0.4 % 0.1-1.2 Unspecified specimen (test code = 71238-0) Neutrophils.band form [#/volume] 6.27 K/uL 1.56-6.13 H in Blood (test code = 03707-9) Lymphocytes [#/volume] in 1.9 K/uL 1.18-3.74 Unspecified specimen by Automated count (test code = 87782-5) mono # (test code = mono #) 0.95 K/uL 0.24-0.86 H eos # (test code = eos #) 0.17 K/uL 0.04-0.36 basophil # (test code = basophil 0.04 K/uL 0.01-0.08 #) NRBC% (test code = NRBC%) 0 /100 WBC 0-0.2 NRBC# (test code = NRBC#) 0 K/uL [facility]comm-[id number] 04:40:00Differential comment-P [facility]Com[facility] 2000 panel - Serum or Plasma 2019-05-20 04:40:00 Test Item Value Reference Range Interpretation Comments glucose (test code = glucose) 153 mg/dL 82-115 H Urea nitrogen [Mass/volume] in 16 mg/dL 8-23 Serum or Plasma (test code = 3094-0) osmolality calculated,serum (test 274 mOsm/kg 280-300 L code = osmolality calculated,serum) creatinine (test code = 0.9 mg/dL 0.50-0.90 creatinine) glomerular filtration rate (test >60.00 code = glomerular filtration rate) Urea nitrogen/Creatinine [Mass 17.8 12-20 Ratio] in Serum or Plasma (test code = 3097-3) sodium level (test code = sodium 135 mmol/L 135-145 level) Potassium [Moles/volume] in Body 4.0 mmol/L 3.5-5.2 fluid (test code = 2821-7) chloride level (test code = 96 mmol/L 98-108 L chloride level) CO2 (test code = CO2) 26 mmol/L 21-32 anion gap (test code = anion gap) 17.0 mEq/L 12-20 calcium level (test code = 9.8 mg/dL 8.8-10.2 calcium level) total protein (test code = total 7.6 g/dL 6.6-8.7 protein) albumin (test code = albumin) 4.3 g/dL 3.5-5.2 globulin (test code = globulin) 3.3 gm/dL A/G ratio (test code = A/G ratio) 1.3 >1.0 bilirubin,total (test code = 0.5 mg/dL 0.0-1.2 bilirubin,total) AST/SGOT (test code = AST/SGOT) 26 U/L 15-32 Alanine aminotransferase 33 U/L 0-33 [Enzymatic activity/volume] in Serum or Plasma (test code = 1742-6) Alkaline phosphatase [Enzymatic 73 U/L 35-105 activity/volume] in Serum or Plasma (test code = 6768-6) [facility] HealthMagnesium [Moles/volume] in Unspecified specimen 2019-05-20 04:40:00 Test Item Value Reference Range Interpretation Comments magnesium level (test code = 2.0 mg/dL 1.6-2.4 magnesium level) [facility] HealthAmylase [Enzymatic activity/volume] in Serum or Plasma 2019-05-20 04:40:00 Test Item Value Reference Range Interpretation Comments Amylase [Enzymatic activity/volume] in 53 U/L 28-100 Serum or Plasma (test code = 1798-8) [facility] HealthLipase [Enzymatic activity/volume] in Serum or Plasma 2019-05-20 04:40:00 Test Item Value Reference Range Interpretation Comments lipase (test code = lipase) 55 U/L 13-60 [facility] HealthLactate [Mass/volume] in Serum or [id number] 04:40:00 Test Item Value Reference Range Interpretation Comments lactic acid (test code = lactic 1.47 mmol/L 0.5-2.2 acid) [facility] HealthHemoglobin A1c [Mass/volume] in [id number] 04:40:00 Test Item Value Reference Range Interpretation Comments Hemoglobin A1c [Mass/volume] in Blood 6.0 % 4.0-6.0 (test code = 52283-5) [facility] W Auto Differential panel - [id number] 04:40:00 Test Item Value Reference Range Interpretation Comments white blood count (test code = 9.4 K/uL 4.0-11.5 white blood count) red blood count (test code = red 4.52 M/uL 3.80-5.20 blood count) hemoglobin (test code = 13.0 g/dL 10.5-15.7 hemoglobin) hematocrit (test code = 39.7 % 34.0-50.0 hematocrit) Erythrocyte mean corpuscular 87.8 fL 86-100 volume [Entitic volume] (test code = 11547-3) mean corpuscular hemoglobin (test 28.8 pg 26.2-33.4 code = mean corpuscular hemoglobin) mean corpuscular HGB conc (test 32.7 g/dL 30-34 code = mean corpuscular HGB conc) red cell distribution width (test 12.7 % 12.0-15.5 code = red cell distribution width) platelet count (test code = 167 K/uL 165-450 platelet count) mean platelet volume (test code = 9.9 fL 9.4-12.6 mean platelet volume) Neutrophils.segmented/100 67.0 % 44.4-80.1 leukocytes in Blood (test code = 81114-1) Granulocytes Immature [#/volume] 0.0 K/uL 0.0-0.03 in Blood (test code = 36889-1) lymphocyte% (test code = 20.5 % 10.0-50.0 lymphocyte%) mono % (test code = mono %) 10.1 % 3.6-12.0 eos % (test code = eos %) 1.8 % 0.0-5.4 Basophils/100 leukocytes in 0.4 % 0.1-1.2 Unspecified specimen (test code = 74668-9) Neutrophils.band form [#/volume] 6.27 K/uL 1.56-6.13 H in Blood (test code = 89532-0) Lymphocytes [#/volume] in 1.9 K/uL 1.18-3.74 Unspecified specimen by Automated count (test code = 33669-8) mono # (test code = mono #) 0.95 K/uL 0.24-0.86 H eos # (test code = eos #) 0.17 K/uL 0.04-0.36 basophil # (test code = basophil 0.04 K/uL 0.01-0.08 #) NRBC% (test code = NRBC%) 0 /100 WBC 0-0.2 NRBC# (test code = NRBC#) 0 [id number] 04:40:00Differential comment-P [facility] 2000 panel - Serum or Plasma 2019-05-20 04:40:00 Test Item Value Reference Range Interpretation Comments glucose (test code = glucose) 153 mg/dL 82-115 H Urea nitrogen [Mass/volume] in 16 mg/dL 8-23 Serum or Plasma (test code = 3094-0) osmolality calculated,serum (test 274 mOsm/kg 280-300 L code = osmolality calculated,serum) creatinine (test code = 0.9 mg/dL 0.50-0.90 creatinine) glomerular filtration rate (test >60.00 code = glomerular filtration rate) Urea nitrogen/Creatinine [Mass 17.8 12-20 Ratio] in Serum or Plasma (test code = 3097-3) sodium level (test code = sodium 135 mmol/L 135-145 level) Potassium [Moles/volume] in Body 4.0 mmol/L 3.5-5.2 fluid (test code = 2821-7) chloride level (test code = 96 mmol/L 98-108 L chloride level) CO2 (test code = CO2) 26 mmol/L 21-32 anion gap (test code = anion gap) 17.0 mEq/L 12-20 calcium level (test code = 9.8 mg/dL 8.8-10.2 calcium level) total protein (test code = total 7.6 g/dL 6.6-8.7 protein) albumin (test code = albumin) 4.3 g/dL 3.5-5.2 globulin (test code = globulin) 3.3 gm/dL A/G ratio (test code = A/G ratio) 1.3 >1.0 bilirubin,total (test code = 0.5 mg/dL 0.0-1.2 bilirubin,total) AST/SGOT (test code = AST/SGOT) 26 U/L 15-32 Alanine aminotransferase 33 U/L 0-33 [Enzymatic activity/volume] in Serum or Plasma (test code = 1742-6) Alkaline phosphatase [Enzymatic 73 U/L 35-105 activity/volume] in Serum or Plasma (test code = 6768-6) [facility]Magnesium [Moles/volume] in Unspecified specimen 2019-05-20 04:40:00 Test Item Value Reference Range Interpretation Comments magnesium level (test code = 2.0 mg/dL 1.6-2.4 magnesium level) [facility] HealthAmylase [Enzymatic activity/volume] in Serum or Plasma 2019-05-20 04:40:00 Test Item Value Reference Range Interpretation Comments Amylase [Enzymatic activity/volume] in 53 U/L 28-100 Serum or Plasma (test code = 1798-8) [facility]Lipase [Enzymatic activity/volume] in Serum or Plasma 2019-05-20 04:40:00 Test Item Value Reference Range Interpretation Comments lipase (test code = lipase) 55 U/L 13-60 [facility] HealthLactate [Mass/volume] in Serum or [id number] 04:40:00 Test Item Value Reference Range Interpretation Comments lactic acid (test code = lactic 1.47 mmol/L 0.5-2.2 acid) [facility] HealthHemoglobin A1c [Mass/volume] in [id number] 04:40:00 Test Item Value Reference Range Interpretation Comments Hemoglobin A1c [Mass/volume] in Blood 6.0 % 4.0-6.0 (test code = 47764-6) [facility]
[2022-03-14 12:00] LABS: Urine Blood Trace-lysed (Negative); Urine Glucose Negative (Negative); Urine Protein Negative (Negative)
[2022-03-14 12:08] LABS: Transitional Epithelial <5 /HPF (None Seen); Urine Mucus Slight /HPF (None Seen); Urine RBC <5 /HPF (None Seen)
[2022-03-14] MEDS ORDERED: NA CHLORIDE 0.9% 1,000 ML ONE (12:34)
[2022-03-14] MEDS ORDERED: FAMOTIDINE 20 MG/2 ML VIAL IV ONE (12:35)
[2022-03-14 12:51] LABS: Absolute Lymphocytes (CBC) 1.9 K/uL (0.7-4.9); Hematocrit 41.3 % (36.0-45.0); Lymphocytes % 24.3 % (15.3-44.8); MCV 86.3 fL (80-100); MPV 8.2 fL (7.6-11.3); RBC Red Blood Cell Count 4.78 M/uL (3.86-4.86)
[2022-03-14 13:15] LABS: Albumin 3.6 g/dL (3.4-5.0); Bilirubin Total 0.5 mg/dL (0.2-1.0); Protein, Total 7.6 g/dL (6.4-8.2)
--- NOTE | 2022-03-14 14:04 | RAD REPORT ---
EXAM DESCRIPTION: CTAbdomen Pelvis W Contrast - 03/14/2022 1:29 pm CLINICAL HISTORY: Abdominal pain. hx of diverticulitis. abd pain COMPARISON: No comparisons TECHNIQUE: Biphasic CT imaging of the abdomen and pelvis was performed with 100 ml non-ionic IV cont rast. All CT scans are performed using dose optimization technique as appropriate and may include automated exposure control or mA/KV adjustment according to patient size. FINDINGS: The lung bases are clear. The liver demonstrates diffuse fatty infiltration. Cholelithiasis. Spleen is normal in size. Numerous calcifications are seen in the pancreas compatible with chronic pa ncreatitis. Both adrenal glands are normal. Stone is present in the left kidney without hydronephrosi s. No bowel obstruction, free air, free fluid or abscess. There is mild pericolonic inflammation seen prather rrounding the sigmoid colon where numerous diverticula are present. This is compatible with acute div erticulitis. No abscess is present. The appendix is normal. No evidence of significant lymphadenopat hy. No suspicious bony findings. IMPRESSION: Mild acute sigmoid diverticulitis is present without abscess seen. Left renal calculus without hydronephrosis. Cholelithiasis. Chronic pancreatitis.
--- NOTE | 2022-03-14 15:15 | EDPHYS ---
Physician Documentation [facility] Name: Sharon Gloria Age: 67 yrs Sex: Female : 1955 Arrival Date: 03/14/2022 Time: 10:52 Bed 7 Private MD: ED Physician Jorge Maher HPI: 03/14 13:06 This 67 yrs old Female presents to ER via Ambulatory with complaints of Abdominal Pain. snw 13:06 The patient presents with abdominal pain in the lower abdomen. Onset: The snw symptoms/episode began/occurred acutely, 2 day(s) ago, and became persistent. The symptoms do not radiate. Associated signs and symptoms: Pertinent positives: dysuria. The symptoms are described as crampy. Severity of pain: At its worst the pain was moderate. The patient has experienced similar episodes in the past, multiple times. sees PCP in [place], states she has hx of diverticulitis, ate soup with some corn in it over the weekend.. Historical: - Allergies: 11:08 Keflex; ss 11:08 Tetanus Vaccines \\T\\ Toxoid; ss 11:08 "some cortisone products"; ss - PMHx: 11:08 Diverticulitis; Hypertensive disorder; ss - Immunization history:: Client reports having NOT received the Covid vaccine. - Social history:: Smoking status: Patient denies any tobacco usage or history of. ROS: 13:04 Constitutional: Negative for fever, chills, and weight loss, Eyes: Negative for injury, snw pain, redness, and discharge, ENT: Negative for injury, pain, and discharge, Neck: Negative for injury, pain, and swelling, Cardiovascular: Negative for chest pain, palpitations, and edema, Respiratory: Negative for shortness of breath, cough, wheezing, and pleuritic chest pain, Back: Negative for injury and pain, : Negative for injury, bleeding, discharge, and swelling, MS/Extremity: Negative for injury and deformity, Skin: Negative for injury, rash, and discoloration, Neuro: Negative for headache, weakness, numbness, tingling, and seizure. 13:04 Abdomen/GI: Positive for abdominal pain, abdominal cramps, of the suprapubic area, right lower quadrant and left lower quadrant. Exam: 13:03 Constitutional: This is a well developed, well nourished patient who is awake, alert, snw and in no acute distress. Head/Face: Normocephalic, atraumatic. Eyes: Pupils equal round and reactive to light, extra-ocular motions intact. Lids and lashes normal. Conjunctiva and sclera are non-icteric and not injected. Cornea within normal limits. Periorbital areas with no swelling, redness, or edema. ENT: Nares patent. No nasal discharge, no septal abnormalities noted. Tympanic membranes are normal and external auditory canals are clear. Oropharynx with no redness, swelling, or masses, exudates, or evidence of obstruction, uvula midline. Mucous membranes moist. Neck: Trachea midline, no thyromegaly or masses palpated, and no cervical lymphadenopathy. Supple, full range of motion without nuchal rigidity, or vertebral point tenderness. No Meningismus. Chest/axilla: Normal chest wall appearance and motion. Nontender with no deformity. No lesions are appreciated. Cardiovascular: Regular rate and rhythm with a normal S1 and S2. No gallops, murmurs, or rubs. Normal PMI, no JVD. No pulse deficits. Respiratory: Lungs have equal breath sounds bilaterally, clear to auscultation and percussion. No rales, rhonchi or wheezes noted. No increased work of breathing, no retractions or nasal flaring. Back: No spinal tenderness. No costovertebral tenderness. Full range of motion. Skin: Warm, dry with normal turgor. Normal color with no rashes, no lesions, and no evidence of cellulitis. MS/ Extremity: Pulses equal, no cyanosis. Neurovascular intact. Full, normal range of motion. Neuro: Awake and alert, GCS 15, oriented to person, place, time, and situation. Cranial nerves II-XII grossly intact. Motor strength 5/5 in all extremities. Sensory grossly intact. Cerebellar exam normal. Normal gait. 13:03 Abdomen/GI: Inspection: abdomen appears normal, Bowel sounds: normal, in all quadrants, Palpation: moderate abdominal tenderness, in the suprapubic area, right lower quadrant and left lower quadrant. Vital Signs: 11:05 BP 149 / 90; Pulse 91; Resp 16; Temp 97.9(TE); Pulse Ox 98% on R/A; Weight 75.75 kg; ss Height 5 ft. 7 in. (170.18 cm); Pain 4/10; 12:45 BP 165 / 81; Pulse 88; Resp 16; Pulse Ox 98% ; Pain 5/10; mb8 11:05 Body Mass Index 26.16 (75.75 kg, 170.18 cm) ss MDM: 11:46 Patient medically screened. snw 15:15 Data reviewed: vital signs, nurses notes. Data interpreted: Pulse oximetry: on room air snw is 98 %. Interpretation: normal. Counseling: I had a detailed discussion with the patient and/or guardian regarding: the historical points, exam findings, and any diagnostic results supporting the discharge/admit diagnosis, the presence of at least one elevated blood pressure reading (>120/80) during this emergency department visit, lab results, radiology results, the need for outpatient follow up, to return to the emergency department if symptoms worsen or persist or if there are any questions or concerns that arise at home. Response to treatment: the patient's symptoms have mildly improved after treatment. Special discussion: Based on the patient's Hx, exam, and Dx evaluation, there is no indication for emergent surgery or inpatient Tx. It is understood by the patient/guardian that if the Sx's persist or worsen they need to return immediately for re-evaluation. Based on the history and exam findings, there is no indication for further emergent testing or inpatient evaluation. I discussed with the patient/guardian the need to see the unit trust manager for further evaluation of the symptoms. I discussed with the patient/guardian the need to see the OB Gyne specialist for further evaluation of the symptoms. I discussed with the patient/guardian the need to see the primary care provider for further evaluation of the symptoms. 03/14 11:39 Order name: Urine Culture snw 03/14 11:39 Order name: Urine Microscopic Only; Complete Time: 12:08 snw 03/14 12:00 Order name: Urine Dipstick-Ancillary; Complete Time: 12:05 EDMS 03/14 12:23 Order name: CBC with Diff; Complete Time: 12:57 snw 03/14 12:23 Order name: CMP; Complete Time: 13:17 snw 03/14 12:23 Order name: Lipase; Complete Time: 13:17 snw 03/14 11:39 Order name: Urine Dipstick-Ancillary (obtain specimen); Complete Time: 11:58 snw 03/14 12:23 Order name: CT Abd/Pelvis - IV Contrast Only snw 03/14 12:27 Order name: Abdomen ; Complete Time: 14:04 EDMS 03/14 12:43 Order name: Carcinoembryonic Antigen; Complete Time: 13:58 EDMS 03/14 12:23 Order name: IV Saline Lock; Complete Time: 12:45 snw 03/14 12:23 Order name: Labs collected and sent; Complete Time: 12:45 snw Administered Medications: 12:40 Drug: Pepcid (famotidine) 20 mg Route: IVP; Site: right antecubital; mb8 15:19 Follow up: Response: No adverse reaction mb8 12:44 Drug: NS 0.9% 1000 ml Route: IV; Rate: 1 bolus; Site: right antecubital; mb8 13:30 Follow up: Response: No adverse reaction; IV Status: Completed infusion mb8 13:15 Drug: Ciprofloxacin 500 mg Route: PO; mb8 15:19 Follow up: Response: Medication administered at discharge. mb8 13:15 Drug: Flagyl (metroNIDAZOLE) 500 mg Route: PO; mb8 15:19 Follow up: Response: Medication administered at discharge. mb8 Disposition: 16:58 Co-signature as Attending Physician, Jorge JEFFERSON was immediately available onsite ms3 in the emergency department for consultation in the care of the patient. Disposition Summary: 03/14/22 15:14 Discharge Ordered Location: Home snw Condition: Stable snw Diagnosis - Diverticulitis of intestine, part unspecified, without perforation or abscess snw without bleeding - Other chronic pancreatitis snw - Kidney stone snw - Other cholelithiasis without obstruction snw Followup: snw - With: Emergency Department - When: As needed - Reason: Worsening of condition Followup: snw - With: Private Physician - When: 2 - 3 days - Reason: Recheck today's complaints, Continuance of care, Re-evaluation by your physician Discharge Instructions: - Discharge Summary Sheet snw - Diverticulitis snw - Kidney Stones snw - Cholelithiasis snw - Dietary Guidelines to Help Prevent Kidney Stones snw - Chronic Pancreatitis snw - Sierra Diet snw Forms: - Medication Reconciliation Form snw - Thank You Letter snw - Antibiotic Education snw - Prescription Opioid Use snw Prescriptions: - Cipro 500 mg Oral Tablet - take 1 tablet by ORAL route every 12 hours for 10 days; 20 tablet; Refills: 0, snw Product Selection Permitted - Zofran 4 mg Oral Tablet - take 1 tablet by ORAL route every 12 hours As needed; 20 tablet; Refills: 0, snw Product Selection Permitted - Metronidazole 500 mg Oral Tablet - take 1 tablet by ORAL route every 8 hours; 30 tablet; Refills: 0, Product snw Selection Permitted Signatures: Dispatcher [employer] EDGina Zamora, BAG TURNER-C BAG TURNER-[place] Deb Montanez, RN RN ss Jorge Maher DO DO ms3 Fahad Summers RN RN mb8
--- NOTE | 2022-03-14 15:15 | ER ---
Nurse's Notes [facility] Name: Sharon Gloria Age: 67 yrs Sex: Female : 1955 Arrival Date: 03/14/2022 Time: 10:52 Bed 7 Private MD: Diagnosis: Diverticulitis of intestine, part unspecified, without perforation or abscess without bleeding;Other chronic pancreatitis;Kidney stone;Other cholelithiasis without obstruction Presentation: 03/14 11:05 Chief complaint: Patient states: Lower abd that began Tuesday. Pt states, "It doesn't ss hurt when I use the restroom, but when I'm almost done emptying my bladder it hurts, and when my bladder is full it also hurts.". Coronavirus screen: Client denies travel out of the [place] in the last 14 days. Ebola Screen: Patient denies exposure to infectious person. Patient denies travel to an Ebola-affected area in the 21 days before illness onset. Initial Sepsis Screen: Does the patient meet any 2 criteria? No. Patient's initial sepsis screen is negative. Does the patient have a suspected source of infection? No. Patient's initial sepsis screen is negative. Risk Assessment: Do you want to hurt yourself or someone else? Patient reports no desire to harm self or others. Onset of symptoms was March 12, 2022. 11:05 Method Of Arrival: Ambulatory ss 11:05 Acuity: GO 3 ss Triage Assessment: 12:00 General: Appears in no apparent distress. Behavior is calm, cooperative, appropriate mb8 for age. Historical: - Allergies: 11:08 Keflex; ss 11:08 Tetanus Vaccines \\T\\ Toxoid; ss 11:08 "some cortisone products"; ss - PMHx: 11:08 Diverticulitis; Hypertensive disorder; ss - Immunization history:: Client reports having NOT received the Covid vaccine. - Social history:: Smoking status: Patient denies any tobacco usage or history of. Screenin:00 Abuse screen: Denies threats or abuse. Denies injuries from another. Nutritional mb8 screening: No deficits noted. Tuberculosis screening: No symptoms or risk factors identified. Fall Risk None identified. Assessment: 12:00 Pain: Complains of pain in abdomen. GI: Bowel sounds present X 4 quads. Abd is soft and mb8 non tender Reports lower abdominal pain. : Denies burning with urination, urinary frequency, urgency. Vital Signs: 11:05 BP 149 / 90; Pulse 91; Resp 16; Temp 97.9(TE); Pulse Ox 98% on R/A; Weight 75.75 kg; ss Height 5 ft. 7 in. (170.18 cm); Pain 4/10; 12:45 BP 165 / 81; Pulse 88; Resp 16; Pulse Ox 98% ; Pain 5/10; mb8 11:05 Body Mass Index 26.16 (75.75 kg, 170.18 cm) ED Course: 10:52 Patient arrived in ED. mr 11:08 Triage completed. ss 11:08 Arm band placed on right wrist. ss 11:10 Gina Cuadra FNP-C is PHCP. snw 11:10 Jorge Maher DO is Attending Physician. snw 11:46 Fahad Summers, CURT is Primary Nurse. mb8 12:00 Patient has correct armband on for positive identification. Placed in gown. Bed in low mb8 position. Call light in reach. Side rails up X2. Client placed on continuous cardiac and pulse oximetry monitoring. NIBP monitoring applied. 12:39 Inserted saline lock: 20 gauge in right antecubital area, using aseptic technique. mb8 Blood collected. 12:46 No provider procedures requiring assistance completed. mb8 13:31 Abdomen In Process Unspecified. EDMS 15:19 IV discontinued, intact, bleeding controlled, No redness/swelling at site. Pressure mb8 dressing applied. Administered Medications: 12:40 Drug: Pepcid (famotidine) 20 mg Route: IVP; Site: right antecubital; mb8 15:19 Follow up: Response: No adverse reaction mb8 12:44 Drug: NS 0.9% 1000 ml Route: IV; Rate: 1 bolus; Site: right antecubital; mb8 13:30 Follow up: Response: No adverse reaction; IV Status: Completed infusion mb8 13:15 Drug: Ciprofloxacin 500 mg Route: PO; mb8 15:19 Follow up: Response: Medication administered at discharge. mb8 13:15 Drug: Flagyl (metroNIDAZOLE) 500 mg Route: PO; mb8 15:19 Follow up: Response: Medication administered at discharge. mb8 Medication: 12:46 VIS not applicable for this client. mb8 Outcome: 15:14 Discharge ordered by MD. guzman 15:27 Discharged to home ambulatory. mb8 15:27 Condition: stable 15:27 Discharge instructions given to patient, Instructed on discharge instructions, follow up and referral plans. no drinking with medication, medication usage, Demonstrated understanding of instructions, follow-up care, medications, Prescriptions given X 3. 15:27 Patient left the ED. mb8 Signatures: Dispatcher [employer] EDMS Gina Cuadra, WILD ANIMAL CARETAKER-C WILD ANIMAL CARETAKER-[place] Trixie Elder Shelby, RN RN Fahad Summers RN RN mb8
[2022-03-14] MEDS ORDERED: CIPROFLOXACIN HCL 500 MG TAB ONE (15:16)
[2022-03-14] MEDS ORDERED: metroNIDAZOLE 500 MG TABLET ONE (15:16)
== END 2022-03-14 15:27 | disposition home or self-care (01) ==
LOC: ER 10:49
DX: K57.32 Diverticulitis of large intestine without perforation or abscess without bleeding (principal); K86.1 Other chronic pancreatitis; K80.80 Other cholelithiasis without obstruction; N20.0 Calculus of kidney; I10 Essential (primary) hypertension; Z88.7 Allergy status to serum and vaccine; Z88.8 Allergy status to other drugs, medicaments and biological substances
CPT/HCPCS: 96361; 87088; 85025; 87086; 36415; 82378; 83690; 80053; 74177; 96374; 99284; Q9967; J7030; 81003; 81015